=== PATIENT | female | born 1975 | race Caucasian/White ===

== ENCOUNTER 2021-01-06 05:59 | Emergency (ER) | payer MEDICAID ==
[~2021-01-06] VITALS: Ht 167.6 cm; Wt 89.8 kg
[2021-01-06 06:17] VITALS: BP 103/66
[2021-01-06] MEDS ORDERED: IBUPROFEN 400 MG TAB PO ONE (06:50)
[2021-01-06 07:33] VITALS: BP 103/66
== END 2021-01-06 07:34 | disposition home or self-care (01) ==
LOC: MED 05:59
DX: R51.9 Headache, unspecified (principal)
CPT/HCPCS: 81025; 99282

== ENCOUNTER 2022-04-14 17:51 | Emergency (ER) | payer MEDICAID ==
[~2022-04-14] VITALS: Ht 162.6 cm; Wt 82.6 kg
[2022-04-14 17:58] VITALS: BP 123/70
--- NOTE | 2022-04-14 18:59 | NUR ---
46 Y/O FEMALE BIB SELF FOR C/O HEMMORRHOID PAIN. PER PATIENT SHE HAS HAD THE HEMMORRHOIDS SINCE THE OF HER DAUGHTER 7 YEARS AGO. THEY DID NOT START HURTING UNTIL X 8 DAYS AGO. PATIENT HAS 4/10 PAIN TO HEMMORRHOIDS. PATIENT WENT TO PCP AND WAS PRESCRIBED HYDROCORTISONE. PATIENT IS TAKING IBUPROFEN FOR PAIN. MEDICAL HISTORY: DENIES NKDA
--- NOTE | 2022-04-14 19:16 | NUR ---
Pt report given to OSWALDO BRANDT. Transfer of care at this time.
[2022-04-14] MEDS ORDERED: DOCU-299 PO (20:50)
[2022-04-14] MEDS ORDERED: PHEN26CR2 RC (20:50)
[2022-04-14 21:22] VITALS: BP 123/70
--- NOTE | 2022-04-14 21:23 | NUR ---
Patient discharged with v/s stable. Written and verbal after care instructions given and explained. Patient alert, oriented and verbalized understanding of instructions. Ambulatory with steady gait. All questions addressed prior to discharge. ID band removed. Patient advised to follow up with PMD. Rx of COLACE AND PREPARATION H CREAM given. Patient educated on indication of medication including possible reaction and side effects. Opportunity to ask questions provided and answered.
[2022-04-15] MEDS ORDERED: DOCU-299 PO (12:01)
[2022-04-15] MEDS ORDERED: HYDR-2734 TP (12:01)
== END 2022-04-14 21:23 | disposition home or self-care (01) ==
LOC: MED 17:51
DX: K64.4 Residual hemorrhoidal skin tags (principal)
CPT/HCPCS: 99282

== ENCOUNTER 2023-02-26 08:12 | Emergency (ER) | payer MEDICAID ==
[~2023-02-26] VITALS: Ht 162.6 cm; Wt 87.1 kg
[~2023-02-26 08:12] MED LIST: DOCU-299 PO; HYDR-2734 TP; PHEN26CR2 RC
[2023-02-26 08:27] VITALS: BP 128/76
--- NOTE | 2023-02-26 08:35 | NUR ---
PATIENT AMBULATED TO BED 03 WITH STEADY/EVEN GAIT.
[2023-02-26] MEDS ORDERED: AMOX500C25 PO (09:26)
[2023-02-26] MEDS ORDERED: SUD30 PO (09:26)
[2023-02-26] MEDS ORDERED: IBUP-2213 PO (09:26)
--- NOTE | 2023-02-26 09:40 | NUR ---
Patient discharged with v/s stable. Written and verbal after care instructions given and explained for Pharyngitis. Patient alert, oriented and verbalized understanding of instructions. Ambulatory with steady gait. All questions addressed prior to discharge. ID band removed. Patient advised to follow up with PMD. Rx of Amoxicillin, Ibuprofen, Sudafed given. Patient educated on indication of medication including possible reaction and side effects. Opportunity to ask questions provided and answered. Work note given to patient.
[2023-02-26] MEDS ORDERED: AMOX250P30 PO (09:43)
== END 2023-02-26 09:40 | disposition home or self-care (01) ==
LOC: MED 08:12
DX: H66.92 Otitis media, unspecified, left ear (principal); Z98.51 Tubal ligation status; Z79.899 Other long term (current) drug therapy; Z79.1 Long term (current) use of non-steroidal anti-inflammatories (NSAID); Z79.2 Long term (current) use of antibiotics
CPT/HCPCS: 99283